=== PATIENT | female | born 1975 | race Caucasian/White ===

== ENCOUNTER 2016-11-27 11:10 | Emergency (ER) | payer OTHER, BC ==
[2016-11-27 11:19] VITALS: BMI 30.2
[2016-11-27 11:24] VITALS: BP 115/67; PULSE 88; RESP 19; TEMP 98.7; O2SAT 99
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
--- NOTE | 2016-11-27 14:31 | RAD ---
PROCEDURE: Cervical Spine Radiographs. HISTORY: Pain. COMPARISON: None. FINDINGS: BONES: Alignment maintained. No fracture. Dens Intact. DISC SPACES: Normal. SOFT TISSUES: Normal. No prevertebral soft tissue swelling. OTHER FINDINGS: None. IMPRESSION: Normal cervical spine radiographs
== END 2016-11-27 13:41 | disposition home or self-care (01) ==
LOC: ED 11:10
DX: M54.2 Cervicalgia (principal); M54.5 Low back pain; V49.49XA Driver injured in collision with other motor vehicles in traffic accident, initial encounter; Y92.410 Unspecified street and highway as the place of occurrence of the external cause
CPT/HCPCS: 72050; 72110; 96372; 99282; J1885